=== PATIENT | male | born 1995 | race Caucasian/White ===

== ENCOUNTER 2023-09-13 12:21 | Emergency (ER) | payer SELFPAY ==
[~2023-09-13] VITALS: Ht 164.3 cm; Wt 76.2 kg
[2023-09-13 12:23] VITALS: BP 133/69; PULSE 101; RESP 20; TEMP 98.1; O2SAT 99
[2023-09-13] MEDS: ACETAMINOPHEN EXTRA STRENGTH 500 MG TAB PO ONE (13:17)
[2023-09-13 13:19] VITALS: BP 125/82; PULSE 88; RESP 16; TEMP 98.1; O2SAT 99
== END 2023-09-13 13:00 ==
LOC: MED 12:21
DX: S39.012A Strain of muscle, fascia and tendon of lower back, initial encounter (principal); R51.9 Headache, unspecified; Z79.899 Other long term (current) drug therapy; V49.88XA Car occupant (driver) (passenger) injured in other specified transport accidents, initial encounter; Y93.89 Activity, other specified; Y92.89 Other specified places as the place of occurrence of the external cause; Y99.8 Other external cause status
CPT/HCPCS: 99283